=== PATIENT | male | born 1950 | race Caucasian/White ===

== ENCOUNTER → 2017-03-20 | Outpatient (CLI) | payer MEDICARE | END | disposition home or self-care (01) | LOC: CFH 09:36 | PROVIDERS: ATTEND Internal Medicine Cardiovascular Disease | DX: I35.0 Nonrheumatic aortic (valve) stenosis (principal); I10 Essential (primary) hypertension; Z72.0 Tobacco use | CPT/HCPCS: 93306 ==

== ENCOUNTER → 2020-02-12 | Outpatient (CLI) | payer MEDICARE ==
[~2020-02-12] MED LIST: FAMO20TA7 PO; LISINOPRIL; METF500T17 PO; METH40TA3 PO; ONDA8TAB16 SL; ROSU20TA2 PO; TAMS-11 PO
== END | disposition home or self-care (01) ==
LOC: STAR 10:03
PROVIDERS: ATTEND Internal Medicine
DX: Z01.818 Encounter for other preprocedural examination (principal); I45.10 Unspecified right bundle-branch block; Z20.828 Contact with and (suspected) exposure to other viral communicable diseases
CPT/HCPCS: 87635; 93005

== ENCOUNTER 2020-02-18 10:24 | Day surgery (SDC) | payer MEDICARE ==
[~2020-02-18] VITALS: Ht 167.6 cm; Wt 56.6 kg
[2020-02-18 10:50] VITALS: BP 114/77
[2020-02-18] MEDS ORDERED: LACTATED RINGERS 1,000 ML IV SCH (11:00)
[2020-02-18] MEDS ORDERED: CHLORHEXIDINE 15 ML UDC MM ONE (11:00)
[2020-02-18 11:36] LABS: ALANINE AMINOTRANSFERASE 42 U/L (12-78); ALBUMIN 2.7 g/dL (3.4-5.0); ANION GAP 4 mmol/L (5-15); CALCIUM 9.1 mg/dL (8.5-10.1); CHLORIDE 101 mmol/L (98-107)
[2020-02-18 11:38] LABS: ALKALINE PHOSPHATASE 111 U/L (45-117); BILIRUBIN,TOTAL 0.7 mg/dL (0.2-1.0); CREATININE 0.79 mg/dL (0.7-1.3); TOTAL PROTEIN 7.9 g/dL (6.4-8.2)
[2020-02-18 11:39] LABS: BASOPHILS % (AUTO) 1 % (0-1); EOSINOPHILS % (AUTO) 0 % (1-7); LYMPHOCYTES % (AUTO) 8 % (22-44); MEAN CORPUSCULAR HEMOGLOBIN 26.9 pg (27.5-34.5); MEAN CORPUSCULAR HGB CONC 32.3 g/dL (33.2-36.2); MEAN PLATELET VOLUME 8.4 fL (7.4-10.4); MONOCYTES % (AUTO) 8 % (2-9); NEUTROPHILS % (AUTO) 83 % (42-75); PLATELET COUNT 209 x10^3/uL (130-400); RED BLOOD COUNT 3.52 x10^6/uL (4.38-5.82)
[2020-02-18] MEDS ORDERED: FENTANYL PF 100 MCG/2ML ONE (11:39)
[2020-02-18] MEDS ORDERED: MIDAZOLAM 1 MG/ML, 2ML ONE (11:40)
[2020-02-18 11:43] LABS: MD NO
[2020-02-18] MEDS ORDERED: MEPERIDINE/PF 25MG/0.5ML IVPush PRN (12:00)
[2020-02-18] MEDS ORDERED: PROMETHAZINE 25 MG/ML, 1ML IVPush PRN (12:00)
[2020-02-18] MEDS ORDERED: HYDROmorphone 1 MG/ML, 1ML INJ IVPush PRN (12:00)
[2020-02-18] MEDS ORDERED: HYDROcodone/APAP 7.5-325MG/15ML UDC PO PRN (12:00)
[2020-02-18] MEDS ORDERED: FENTANYL PF 100 MCG/2ML IV PRN (12:00)
[2020-02-18] MEDS ORDERED: OXYcodone 5 MG/5 ML ORAL.SOL UDC PO PRN (12:00)
[2020-02-18] MEDS ORDERED: PHENYLEPHRINE 10 MG/ML ONE (13:04)
[2020-02-18] MEDS ORDERED: PROPOFOL 10 MG/ML, 20ML ONE (13:04)
[2020-02-18] MEDS ORDERED: ROCURONIUM 10 MG/ML,10ML ONE (13:04)
[2020-02-18] MEDS ORDERED: CEFAZOLIN 1,000 MG ONE (13:04)
[2020-02-18] MEDS ORDERED: VASOPRESSIN 20 UNIT/ML, 1ML ONE (13:04)
[2020-02-18] MEDS ORDERED: SUCCINYLCHOLINE 20 MG/ML, 10ML ONE (13:04)
[2020-02-18] MEDS ORDERED: OMNIPAQUE 350 MG/ML, 50 ML BOTTLE ONE (13:44)
[2020-02-18] MEDS ORDERED: FAMO40TA4 PO (20:53)
[2020-02-18] MEDS ORDERED: METF10007 PO (20:53)
[2020-02-18] MEDS ORDERED: DICY10CA3 PO (20:53)
[2020-02-18] MEDS ORDERED: TRAZ-175 PO (20:53)
[2020-02-24] MEDS ORDERED: TAMS-11 PO (12:39)
== END 2020-02-18 15:30 | disposition home or self-care (01) ==
LOC: OUT 10:24
PROVIDERS: ATTEND Internal Medicine
DX: Z46.59 Encounter for fitting and adjustment of other gastrointestinal appliance and device (principal); K80.50 Calculus of bile duct without cholangitis or cholecystitis without obstruction; K83.2 Perforation of bile duct; E11.9 Type 2 diabetes mellitus without complications; I25.2 Old myocardial infarction; Z79.4 Long term (current) use of insulin; Z79.891 Long term (current) use of opiate analgesic; Z79.899 Other long term (current) drug therapy; Z88.8 Allergy status to other drugs, medicaments and biological substances
CPT/HCPCS: 43264; 43276; 74328; 80053; 82962; 85025; C1769; C1894; C2625; J0330; J0690; J2250; J2370; J2704; J3010; J7120; Q9967

== ENCOUNTER → 2020-03-26 | Outpatient (CLI) | payer MEDICARE ==
[~2020-03-26] MED LIST changes: +DICY10CA3 PO; +ERTA1VIA IV; +FAMO40TA4 PO; +LACT20SO13 NG; +METF10007 PO; +OMNIPAQUE 350 MG/ML, 100ML BOTTLE ONE; +TRAZ-175 PO
== END | disposition home or self-care (01) ==
LOC: RAD 12:14
PROVIDERS: ATTEND Internal Medicine Infectious Disease
DX: K75.0 Abscess of liver (principal)
CPT/HCPCS: 74177; Q9967

== ENCOUNTER → 2020-04-08 | Outpatient (CLI) | payer MEDICARE ==
[~2020-04-08] MED LIST changes: -OMNIPAQUE 350 MG/ML, 100ML BOTTLE ONE
== END | disposition home or self-care (01) ==
LOC: STAR 11:33
PROVIDERS: ATTEND Internal Medicine
DX: Z01.818 Encounter for other preprocedural examination (principal); I45.2 Bifascicular block; R94.31 Abnormal electrocardiogram [ECG] [EKG]; Z20.822 Contact with and (suspected) exposure to COVID-19
CPT/HCPCS: 87635; 93005

== ENCOUNTER 2020-04-14 09:48 | Day surgery (SDC) | payer MEDICARE ==
[~2020-04-14] VITALS: Ht 167.6 cm; Wt 61.6 kg
[~2020-04-14 09:48] MED LIST changes: +BUPIVACAINE/PF 0.5% ONE; +DEXAMETHASONE 4 MG/ML, 5ML ONE; +EPINEPHRINE 1 MG/ML, 1ML ONE; +FENTANYL PF 100 MCG/2ML ONE; +LIDOCAINE-MPF 2% ,5ML ONE; +ONDANSETRON 2MG/ML, 2ML ONE; +OXYcodone 5 MG/5 ML ORAL.SOL UDC ONE; +PROPOFOL 10 MG/ML, 20ML ONE; +ROCURONIUM 10MG/ML,5ML ONE; +SUCCINYLCHOLINE 20 MG/ML, 10ML ONE; +SUGAMMADEX 200 MG/2 ML IVPush ONE; +TALC 4 GM VIAL ONE
[2020-04-14] MEDS ORDERED: LACTATED RINGERS 1,000 ML IV SCH (10:30)
[2020-04-14] MEDS ORDERED: CHLORHEXIDINE 15 ML UDC MM ONE (10:30)
[2020-04-14] MEDS ORDERED: IRON PO (10:31)
[2020-04-14] MEDS ORDERED: VITAMIN C PO (10:31)
[2020-04-14] MEDS ORDERED: FURO20TA3 PO (10:31)
[2020-04-14] MEDS ORDERED: [UNRECOGNIZED DRUG - REMARK] IV (10:33)
[2020-04-14 10:36] VITALS: BP 126/79
[2020-04-14] MEDS ORDERED: CHLORHEXIDINE 15 ML UDC ONE (10:43)
[2020-04-14] MEDS ORDERED: PROPOFOL 10 MG/ML, 20ML ONE (12:59)
[2020-04-14] MEDS ORDERED: GLYCOPYRROLATE 0.2MG/1ML, 5ML ONE (12:59)
[2020-04-14] MEDS ORDERED: MIDAZOLAM 1 MG/ML, 2ML ONE (12:59)
[2020-04-14] MEDS ORDERED: DEXAMETHASONE 4 MG/ML, 5ML ONE (12:59)
[2020-04-14] MEDS ORDERED: ROCURONIUM 10MG/ML,5ML ONE (12:59)
[2020-04-14] MEDS ORDERED: OMNIPAQUE 350 MG/ML, 50 ML BOTTLE ONE (14:18)
== END 2020-04-14 17:05 | disposition home or self-care (01) ==
LOC: OUT 09:48
PROVIDERS: ATTEND Internal Medicine
DX: Z46.59 Encounter for fitting and adjustment of other gastrointestinal appliance and device (principal); K80.50 Calculus of bile duct without cholangitis or cholecystitis without obstruction; D64.9 Anemia, unspecified; J44.9 Chronic obstructive pulmonary disease, unspecified; E11.9 Type 2 diabetes mellitus without complications; N40.0 Benign prostatic hyperplasia without lower urinary tract symptoms; I25.10 Atherosclerotic heart disease of native coronary artery without angina pectoris; Z79.899 Other long term (current) drug therapy; Z90.49 Acquired absence of other specified parts of digestive tract; Z99.81 Dependence on supplemental oxygen
CPT/HCPCS: 43264; 43275; 74328; 82962; C1769; J1100; J2250; J2704; J7120; Q9967; J0171; J2405; J3010; J0330

== ENCOUNTER 2020-05-18 16:09 | Inpatient (IN) | payer MEDICARE ==
[~2020-05-18] VITALS: Ht 167.6 cm; Wt 61.2 kg
[~2020-05-18 16:09] MED LIST changes: -BUPIVACAINE/PF 0.5% ONE; +CARV3.1212 PO; -DEXAMETHASONE 4 MG/ML, 5ML ONE; -EPINEPHRINE 1 MG/ML, 1ML ONE; -FENTANYL PF 100 MCG/2ML ONE; +FERR-51 PO; +FURO-92 PO; +FURO20TA3 PO; +IRON PO; -LIDOCAINE-MPF 2% ,5ML ONE; +METH10TA2 PO; -ONDANSETRON 2MG/ML, 2ML ONE; -OXYcodone 5 MG/5 ML ORAL.SOL UDC ONE; -PROPOFOL 10 MG/ML, 20ML ONE; -ROCURONIUM 10MG/ML,5ML ONE; +SPIR25TA PO; -SUCCINYLCHOLINE 20 MG/ML, 10ML ONE; -SUGAMMADEX 200 MG/2 ML IVPush ONE; -TALC 4 GM VIAL ONE; +VITAMIN C PO; +[UNRECOGNIZED DRUG - REMARK] IV
[2020-05-18] MEDS ORDERED: SODIUM CHLORIDE FLUSH 10ML SYR IVF ONE (18:00)
--- NOTE | 2020-05-18 18:23 | NUR ---
pt in bed with no signs or symptoms of acute distress noted respirations even and unlabored, satting well on nc at 3l/min. pt states he wants a picc line/us start iv and that it wont work if rn attempts peripherial amador. lab in to draw but deffers to iv start draw. pt ok'd by for food tray. pt in bed with call light and urinal within reach
[2020-05-18 18:30] LABS: BASOPHILS % (AUTO) 1 % (0-1); EOSINOPHILS % (AUTO) 1 % (1-7); LYMPHOCYTES % (AUTO) 16 % (22-44); MEAN CORPUSCULAR HEMOGLOBIN 25.5 pg (27.5-34.5); MEAN CORPUSCULAR HGB CONC 31.3 g/dL (33.2-36.2); MEAN PLATELET VOLUME 8.3 fL (7.4-10.4); MONOCYTES % (AUTO) 12 % (2-9); NEUTROPHILS % (AUTO) 71 % (42-75); PLATELET COUNT 133 x10^3/uL (130-400); RED BLOOD COUNT 3.63 x10^6/uL (4.38-5.82); RED CELL DISTRIBUTION WIDTH 21.7 % (9.4-14.8)
[2020-05-18 18:32] LABS: MD NO
[2020-05-18 18:37] LABS: ALANINE AMINOTRANSFERASE 64 U/L (12-78); ALBUMIN 3.1 g/dL (3.4-5.0); ANION GAP 2 mmol/L (5-15); CALCIUM 9.2 mg/dL (8.5-10.1); CHLORIDE 105 mmol/L (98-107); CREATININE 0.88 mg/dL (0.7-1.3)
[2020-05-18 18:41] LABS: ALKALINE PHOSPHATASE 110 U/L (45-117); BILIRUBIN,TOTAL 0.5 mg/dL (0.2-1.0); TOTAL PROTEIN 8.2 g/dL (6.4-8.2); TROPONIN I 0.055 ng/mL (0.000-0.045)
[2020-05-18] MEDS ORDERED: hydrALAzine 20 MG/ML, 1ML IVPush PRN (19:30)
[2020-05-18] MEDS ORDERED: PROMETHAZINE 25 MG/ML, 1ML IM PRN (19:30)
[2020-05-18] MEDS ORDERED: POLYETHYLENE GLYCOL 17 GM PACKET PO PRN (19:30)
[2020-05-18] MEDS ORDERED: ONDANSETRON 2MG/ML, 2ML IVPush PRN (19:30)
[2020-05-18] MEDS ORDERED: DOCUSATE 100 MG CAPSULE PO PRN (19:30)
[2020-05-18] MEDS ORDERED: ACETAMINOPHEN 325 MG TABLET PO PRN (19:30)
[2020-05-18] MEDS ORDERED: ONDANSETRON ODT 4 MG PO PRN (19:30)
[2020-05-18] MEDS ORDERED: OXYcodone IR 5MG TABLET PO PRN (19:30)
[2020-05-18] MEDS ORDERED: BISACODYL 10 MG SUPP PR PRN (19:30)
[2020-05-18 20:09] VITALS: BP 99/62
[2020-05-18] MEDS ORDERED: POTA10TA31 PO (22:08)
[2020-05-18] MEDS ORDERED: FURO40TA6 PO (22:08)
[2020-05-18] MEDS: FUROSEMIDE 40 MG/4 ML IV SCH (22:22)
[2020-05-18] MEDS: HEPARIN 5,000 UNITS/ML, 1ML SQ SCH (22:22)
[2020-05-18] MEDS: INSULIN LISPRO 100 UNITS/ML, PEN SQ-INSULIN SCH (23:02)
[2020-05-19 02:24] VITALS: BP 99/64
[2020-05-19] MEDS: CALCIUM CARBONATE 500 MG TAB.CHEW PO PRN ×2 (02:29→09:35)
[2020-05-19 05:39] LABS: BASOPHILS % (AUTO) 1 % (0-1); EOSINOPHILS % (AUTO) 2 % (1-7); LYMPHOCYTES % (AUTO) 18 % (22-44); MEAN CORPUSCULAR HEMOGLOBIN 25.8 pg (27.5-34.5); MEAN CORPUSCULAR HGB CONC 31.6 g/dL (33.2-36.2); MEAN PLATELET VOLUME 8.3 fL (7.4-10.4); MONOCYTES % (AUTO) 12 % (2-9); NEUTROPHILS % (AUTO) 68 % (42-75); PLATELET COUNT 137 x10^3/uL (130-400); RED BLOOD COUNT 3.52 x10^6/uL (4.38-5.82); RED CELL DISTRIBUTION WIDTH 20.6 % (9.4-14.8)
[2020-05-19 05:42] LABS: MD NO
[2020-05-19 05:53] LABS: ALANINE AMINOTRANSFERASE 63 U/L (12-78); ANION GAP 5 mmol/L (5-15); CALCIUM 9.4 mg/dL (8.5-10.1); CHLORIDE 103 mmol/L (98-107)
[2020-05-19 05:56] LABS: ALKALINE PHOSPHATASE 108 U/L (45-117); BILIRUBIN,TOTAL 0.6 mg/dL (0.2-1.0); TOTAL PROTEIN 8.4 g/dL (6.4-8.2)
[2020-05-19] MEDS: HEPARIN 5,000 UNITS/ML, 1ML SQ SCH ×2 (06:18→16:22)
[2020-05-19 06:51] VITALS: BP 119/77
[2020-05-19] MEDS: FUROSEMIDE 40 MG/4 ML IV SCH ×2 (07:52→16:22)
[2020-05-19] MEDS: TAMSULOSIN 0.4 MG CAP.ER.24H PO SCH (07:53)
[2020-05-19] MEDS: INSULIN LISPRO 100 UNITS/ML, PEN SQ-INSULIN SCH ×4 (08:01→19:55)
[2020-05-19] MEDS: FERROUS SULFATE 325 MG TABLET PO SCH (08:02)
[2020-05-19] MEDS ORDERED: METHADONE 10 MG TABLET PO SCH (09:00)
[2020-05-19 13:17] VITALS: BP 107/74
[2020-05-19] MEDS ORDERED: LIDOCAINE 1%, 10ML ONE (13:34)
[2020-05-19 20:19] VITALS: BP 132/85
[2020-05-20] MEDS: HEPARIN 5,000 UNITS/ML, 1ML SQ SCH ×3 (00:15→16:13)
[2020-05-20 01:05] VITALS: BP 112/70
[2020-05-20] MEDS: CARVEDILOL 3.125 MG TABLET PO SCH (05:40)
[2020-05-20 06:04] LABS: BASOPHILS % (AUTO) 1 % (0-1); EOSINOPHILS % (AUTO) 3 % (1-7); LYMPHOCYTES % (AUTO) 22 % (22-44); MEAN CORPUSCULAR HEMOGLOBIN 25.5 pg (27.5-34.5); MEAN CORPUSCULAR HGB CONC 31.7 g/dL (33.2-36.2); MEAN PLATELET VOLUME 8.3 fL (7.4-10.4); MONOCYTES % (AUTO) 14 % (2-9); NEUTROPHILS % (AUTO) 60 % (42-75); PLATELET COUNT 116 x10^3/uL (130-400); RED BLOOD COUNT 3.41 x10^6/uL (4.38-5.82); RED CELL DISTRIBUTION WIDTH 19.8 % (9.4-14.8)
[2020-05-20 06:06] LABS: CALCIUM 9.3 mg/dL (8.5-10.1); CHLORIDE 103 mmol/L (98-107)
[2020-05-20 06:12] LABS: ALANINE AMINOTRANSFERASE 55 U/L (12-78); ALBUMIN 2.8 g/dL (3.4-5.0); ALKALINE PHOSPHATASE 97 U/L (45-117); ANION GAP 5 mmol/L (5-15); BILIRUBIN,TOTAL 0.6 mg/dL (0.2-1.0); CREATININE 0.85 mg/dL (0.7-1.3); TOTAL PROTEIN 7.7 g/dL (6.4-8.2)
[2020-05-20 06:16] LABS: MD NO
[2020-05-20] MEDS: INSULIN LISPRO 100 UNITS/ML, PEN SQ-INSULIN SCH ×4 (07:00→20:21)
[2020-05-20 07:04] VITALS: BP 97/64
[2020-05-20] MEDS: FUROSEMIDE 40 MG/4 ML IV SCH ×2 (07:59→16:50)
[2020-05-20] MEDS: TAMSULOSIN 0.4 MG CAP.ER.24H PO SCH (09:20)
[2020-05-20] MEDS: METHADONE 10 MG TABLET PO SCH ×2 (09:20→20:09)
[2020-05-20] MEDS: FERROUS SULFATE 325 MG TABLET PO SCH (09:21)
[2020-05-20] MEDS: SPIRONOLACTONE 25 MG TABLET PO SCH (09:21)
[2020-05-20 14:57] VITALS: BP 99/61
[2020-05-20] MEDS: CALCIUM CARBONATE 500 MG TAB.CHEW PO PRN (15:43)
[2020-05-20 18:45] LABS: MEAN CORPUSCULAR HGB CONC 31.1 g/dL (33.2-36.2)
[2020-05-20 18:47] LABS: BASOPHILS % (AUTO) 0 % (0-1); EOSINOPHILS % (AUTO) 2 % (1-7); LYMPHOCYTES % (AUTO) 18 % (22-44); MEAN CORPUSCULAR HEMOGLOBIN 25.4 pg (27.5-34.5); MEAN PLATELET VOLUME 8.8 fL (7.4-10.4); MONOCYTES % (AUTO) 13 % (2-9); NEUTROPHILS % (AUTO) 67 % (42-75); PLATELET COUNT 130 x10^3/uL (130-400); RED BLOOD COUNT 3.79 x10^6/uL (4.38-5.82); RED CELL DISTRIBUTION WIDTH 20.3 % (9.4-14.8)
[2020-05-20 18:57] LABS: MD NO
[2020-05-20 18:59] LABS: ALANINE AMINOTRANSFERASE 63 U/L (12-78); ALBUMIN 3.1 g/dL (3.4-5.0); ANION GAP 2 mmol/L (5-15); CALCIUM 9.2 mg/dL (8.5-10.1); CHLORIDE 101 mmol/L (98-107); CREATININE 1.06 mg/dL (0.7-1.3)
[2020-05-20 19:01] LABS: ALKALINE PHOSPHATASE 114 U/L (45-117); BILIRUBIN,TOTAL 0.5 mg/dL (0.2-1.0); TOTAL PROTEIN 8.4 g/dL (6.4-8.2)
[2020-05-20] MEDS ORDERED: MAALOX/HYOSCYAMINE/LIDOCAINE 45 ML BTL PO PRN (20:00)
[2020-05-20 20:14] VITALS: BP 108/68
[2020-05-20 20:19] VITALS: BP 100/65
[2020-05-21] MEDS: HEPARIN 5,000 UNITS/ML, 1ML SQ SCH ×3 (00:12→16:37)
[2020-05-21] MEDS: CALCIUM CARBONATE 500 MG TAB.CHEW PO PRN ×3 (00:12→16:37)
[2020-05-21 01:12] VITALS: BP 113/69
[2020-05-21] MEDS: CARVEDILOL 3.125 MG TABLET PO SCH (05:25)
[2020-05-21] MEDS: FUROSEMIDE 40 MG/4 ML IV SCH ×2 (07:55→16:37)
[2020-05-21] MEDS: OMEPRAZOLE 20 MG CAPSULE.DR PO SCH (07:55)
[2020-05-21] MEDS: INSULIN LISPRO 100 UNITS/ML, PEN SQ-INSULIN SCH ×4 (07:55→20:31)
[2020-05-21 08:21] VITALS: BP 99/67
[2020-05-21] MEDS: FERROUS SULFATE 325 MG TABLET PO SCH (09:11)
[2020-05-21] MEDS: SPIRONOLACTONE 25 MG TABLET PO SCH (09:11)
[2020-05-21] MEDS: METHADONE 10 MG TABLET PO SCH ×3 (09:11→20:47)
[2020-05-21] MEDS: TAMSULOSIN 0.4 MG CAP.ER.24H PO SCH (09:11)
[2020-05-21 13:59] VITALS: BP 105/72
[2020-05-21 15:23] VITALS: BP 112/69
[2020-05-21 19:43] VITALS: BP 108/74
[2020-05-22] MEDS: HEPARIN 5,000 UNITS/ML, 1ML SQ SCH ×2 (00:21→09:18)
[2020-05-22 00:58] VITALS: BP 112/58
[2020-05-22] MEDS: CARVEDILOL 3.125 MG TABLET PO SCH (05:39)
[2020-05-22] MEDS: OMEPRAZOLE 20 MG CAPSULE.DR PO SCH (05:39)
[2020-05-22 07:45] LABS: BASOPHILS % (AUTO) 1 % (0-1); EOSINOPHILS % (AUTO) 1 % (1-7); LYMPHOCYTES % (AUTO) 11 % (22-44); MEAN CORPUSCULAR HEMOGLOBIN 25.4 pg (27.5-34.5); MEAN CORPUSCULAR HGB CONC 31.1 g/dL (33.2-36.2); MEAN PLATELET VOLUME 8.8 fL (7.4-10.4); MONOCYTES % (AUTO) 13 % (2-9); NEUTROPHILS % (AUTO) 74 % (42-75); PLATELET COUNT 126 x10^3/uL (130-400); RED BLOOD COUNT 3.79 x10^6/uL (4.38-5.82); RED CELL DISTRIBUTION WIDTH 20.5 % (9.4-14.8)
[2020-05-22 07:54] LABS: MD NO
[2020-05-22 07:59] LABS: ALBUMIN 3.1 g/dL (3.4-5.0); CALCIUM 9.4 mg/dL (8.5-10.1)
[2020-05-22 08:03] LABS: ALANINE AMINOTRANSFERASE 61 U/L (12-78); ALKALINE PHOSPHATASE 105 U/L (45-117); BILIRUBIN,TOTAL 0.7 mg/dL (0.2-1.0); CREATININE 1.16 mg/dL (0.7-1.3); TOTAL PROTEIN 8.6 g/dL (6.4-8.2)
[2020-05-22 08:14] LABS: ANION GAP 5 mmol/L (5-15); CHLORIDE 99 mmol/L (98-107)
[2020-05-22] MEDS: INSULIN LISPRO 100 UNITS/ML, PEN SQ-INSULIN SCH ×2 (08:48→11:00)
[2020-05-22 09:00] VITALS: BP 102/76
[2020-05-22] MEDS ORDERED: METHADONE 5 MG TABLET ONE (09:06)
[2020-05-22] MEDS: TAMSULOSIN 0.4 MG CAP.ER.24H PO SCH (09:16)
[2020-05-22] MEDS: SPIRONOLACTONE 25 MG TABLET PO SCH (09:16)
[2020-05-22] MEDS: METHADONE 10 MG TABLET PO SCH (09:16)
[2020-05-22] MEDS: FUROSEMIDE 40 MG/4 ML IV SCH ×2 (09:17→09:29)
[2020-05-22] MEDS: FERROUS SULFATE 325 MG TABLET PO SCH (09:20)
[2020-05-22] MEDS ORDERED: FUROSEMIDE 40 MG TABLET PO ONE (09:30)
[2020-05-22] MEDS ORDERED: FURO40TA6 PO (09:55)
[2020-05-22] MEDS ORDERED: OMEP-110 PO (09:55)
[2020-05-22] MEDS ORDERED: CARV3.1212 PO (09:55)
[2020-05-22] MEDS ORDERED: SPIR25TA PO (09:55)
[2020-05-22] MEDS ORDERED: POTA10TA31 PO (09:55)
[2020-05-22] MEDS ORDERED: ATOR20TA PO (09:57)
[2020-05-22] MEDS ORDERED: FUROSEMIDE 40 MG TABLET PO SCH (17:00)
== END 2020-05-22 13:20 | disposition home or self-care (01) | DRG 291 ==
LOC: ED 17:46 → EDIP 18:38 → 5SO 19:52 → DCLOUNGE 05-22 13:03
PROVIDERS: ADMIT Internal Medicine; ATTEND Hospitalist
PROC: 0W9B3ZZ Drainage of Left Pleural Cavity, Percutaneous Approach (ICD-10-PCS; principal; 2020-05-19)
DX: I11.0 Hypertensive heart disease with heart failure (principal); E43 Unspecified severe protein-calorie malnutrition; J96.01 Acute respiratory failure with hypoxia; F11.20 Opioid dependence, uncomplicated; I42.9 Cardiomyopathy, unspecified; B18.2 Chronic viral hepatitis C; D63.8 Anemia in other chronic diseases classified elsewhere; I95.9 Hypotension, unspecified; R53.81 Other malaise; E11.9 Type 2 diabetes mellitus without complications; G89.29 Other chronic pain; I07.1 Rheumatic tricuspid insufficiency; I25.10 Atherosclerotic heart disease of native coronary artery without angina pectoris; I35.0 Nonrheumatic aortic (valve) stenosis; N40.0 Benign prostatic hyperplasia without lower urinary tract symptoms; Z87.891 Personal history of nicotine dependence; Z90.49 Acquired absence of other specified parts of digestive tract; Z68.21 Body mass index [BMI] 21.0-21.9, adult; I50.23 Acute on chronic systolic (congestive) heart failure
CPT/HCPCS: 32555; 36415; 71045; 76700; 80053; 82962; 83615; 83735; 83880; 83986; 84100; 84157; 84484; 85025; 87070; 87205; 89051; 93005; 96374; 99291; G0378; J1644; J1940; J1815

== ENCOUNTER 2020-06-08 11:56 | Emergency (ER) | payer MEDICARE ==
[~2020-06-08] VITALS: Ht 167.6 cm; Wt 61.0 kg
[~2020-06-08 11:56] MED LIST changes: +ATOR20TA PO; +FURO40TA6 PO; +OMEP-110 PO; +POTA10TA31 PO
--- NOTE | 2020-06-08 12:30 | NUR ---
task rn: right arm piv placed via ultrasound
[2020-06-08] MEDS ORDERED: FUROSEMIDE 40 MG/4 ML IV ONE (13:30)
[2020-06-08 13:50] LABS: BASOPHILS % (AUTO) 1 % (0-1); EOSINOPHILS % (AUTO) 1 % (1-7); LYMPHOCYTES % (AUTO) 11 % (22-44); MEAN CORPUSCULAR HEMOGLOBIN 24.8 pg (27.5-34.5); MEAN CORPUSCULAR HGB CONC 30.2 g/dL (33.2-36.2); MEAN PLATELET VOLUME 8.9 fL (7.4-10.4); MONOCYTES % (AUTO) 13 % (2-9); NEUTROPHILS % (AUTO) 75 % (42-75); PLATELET COUNT 136 x10^3/uL (130-400); RED BLOOD COUNT 3.74 x10^6/uL (4.38-5.82); RED CELL DISTRIBUTION WIDTH 20.1 % (9.4-14.8)
[2020-06-08 13:53] LABS: MD NO
[2020-06-08 13:55] LABS: INTERNATIONAL NORMALIZED RATIO 1.18 (0.93-1.1); PROTHROMBIN TIME 12.6 Seconds (9.6-11.5)
[2020-06-08 13:56] LABS: ALANINE AMINOTRANSFERASE 51 U/L (12-78); ALBUMIN 3.1 g/dL (3.4-5.0); ANION GAP 6 mmol/L (5-15); CALCIUM 8.9 mg/dL (8.5-10.1); CHLORIDE 107 mmol/L (98-107); CREATININE 0.92 mg/dL (0.7-1.3)
[2020-06-08 14:01] LABS: ALKALINE PHOSPHATASE 94 U/L (45-117); BILIRUBIN,TOTAL 0.7 mg/dL (0.2-1.0); TOTAL PROTEIN 8.6 g/dL (6.4-8.2); TROPONIN I 0.055 ng/mL (0.000-0.045)
[2020-06-08] MEDS ORDERED: FUROSEMIDE 40 MG/4 ML ONE (14:07)
[2020-06-08 14:19] VITALS: BP 112/51
[2020-06-08] MEDS ORDERED: KETOROLAC 30 MG/1 ML ONE (14:47)
[2020-06-08] MEDS ORDERED: KETOROLAC 30 MG/1 ML IVPush ONE (15:00)
--- NOTE | 2020-06-08 15:03 | NUR ---
PT DC VIA WHEELCHAIR WITH O2 TANK. SON TO BRING HOME O2 TANK
== END 2020-06-08 15:05 | disposition home or self-care (01) ==
LOC: ED 14:55
DX: I50.22 Chronic systolic (congestive) heart failure (principal); Z76.0 Encounter for issue of repeat prescription; I45.10 Unspecified right bundle-branch block; R07.89 Other chest pain
CPT/HCPCS: 36415; 71045; 80053; 83880; 84484; 85025; 85610; 93005; 96374; 96375; 99285; J1885; J1940

== ENCOUNTER 2020-07-11 21:11 | Inpatient (IN) | payer MEDICARE ==
[~2020-07-11] VITALS: Ht 167.6 cm; Wt 67.0 kg
[~2020-07-11 21:11] MED LIST changes: +FERR-36 PO; +INSU100I11 SQ-INSULIN; +INSU100I13 SQ-INSULIN
--- NOTE | 2020-07-11 21:52 | NUR ---
THIS IS A 69 YO M W/ C/O TESTICLE SWELLING AND PAIN X3 DAYS. SEVERE EDEMA EXTENDS DOWN BOTH LEGS. PT REPORTS WEARS 2-4L NC BASELINE. PT RESTING ON [place] W/ CALL LIGHT IN REACH AND SIDE RAILS UPX2. RESP EVEN AND UNLABORED, SIOMARAN.
--- NOTE | 2020-07-11 22:40 | NUR ---
UNABLE TO START PIV X2. PT TO US.
[2020-07-11 22:48] LABS: MICROSCOPIC AUTO
--- NOTE | 2020-07-11 23:24 | NUR ---
LAB AT BEDSIDE.
[2020-07-11 23:30] LABS: BASOPHILS % (AUTO) 1 % (0-1); EOSINOPHILS % (AUTO) 1 % (1-7); LYMPHOCYTES % (AUTO) 15 % (22-44); MEAN CORPUSCULAR HEMOGLOBIN 24.9 pg (27.5-34.5); MEAN CORPUSCULAR HGB CONC 30.9 g/dL (33.2-36.2); MEAN PLATELET VOLUME 9.1 fL (7.4-10.4); MONOCYTES % (AUTO) 13 % (2-9); NEUTROPHILS % (AUTO) 71 % (42-75); PLATELET COUNT 100 x10^3/uL (130-400); RED BLOOD COUNT 3.86 x10^6/uL (4.38-5.82); RED CELL DISTRIBUTION WIDTH 20.7 % (9.4-14.8)
[2020-07-11 23:34] LABS: MD NO
[2020-07-11 23:42] LABS: ALBUMIN 2.8 g/dL (3.4-5.0); ANION GAP 5 mmol/L (5-15); CALCIUM 8.7 mg/dL (8.5-10.1); CHLORIDE 102 mmol/L (98-107)
[2020-07-11 23:47] LABS: ALANINE AMINOTRANSFERASE 64 U/L (12-78); ALKALINE PHOSPHATASE 97 U/L (45-117); BILIRUBIN,TOTAL 0.7 mg/dL (0.2-1.0); TOTAL PROTEIN 8.2 g/dL (6.4-8.2); TROPONIN I 0.032 ng/mL (0.000-0.045)
[2020-07-12] VITALS (8 sets, daily range): BP systolic 92–125; BP diastolic 49–77
[2020-07-12] MEDS ORDERED: FUROSEMIDE 40 MG/4 ML IV ONE
[2020-07-12] MEDS ORDERED: METF10007 PO (00:19)
[2020-07-12] MEDS ORDERED: LISI-606 PO (00:19)
[2020-07-12] MEDS ORDERED: FUROSEMIDE 40 MG/4 ML ONE (00:36)
--- NOTE | 2020-07-12 01:12 | NUR ---
BEDSIDE REPORT FROM JOHN CHAVEZ. PT CARE TRANSFERRED AT THIS TIME. PT TO BE ADMITTED. Patient is resting comfortably in bed. Bed in lowest, rails engaged, call light on lap. MADDIE.
[2020-07-12] MEDS ORDERED: INSULIN REG SC (01:19)
[2020-07-12] MEDS ORDERED: INSULIN LANTUS SC (01:19)
--- NOTE | 2020-07-12 01:38 | NUR ---
INVENTORY/BELONINGS SHEET COMPLETED AND SIGNED BY PT. 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
--- NOTE | 2020-07-12 01:54 | NUR ---
REPORT CALLED TO JIMENA CHAVEZ. PT BEING TRANSFERRED TO FLOOR AT THIS TIME
[2020-07-12] MEDS ORDERED: OXYcodone IR 5MG TABLET PO PRN (03:00)
[2020-07-12] MEDS ORDERED: POLYETHYLENE GLYCOL 17 GM PACKET PO PRN (03:00)
[2020-07-12] MEDS ORDERED: MELATONIN 5 MG TABLET PO PRN (03:00)
[2020-07-12] MEDS ORDERED: DOCUSATE 100 MG CAPSULE PO PRN (03:00)
[2020-07-12] MEDS ORDERED: TEMAZEPAM 15 MG CAPSULE PO PRN (03:00)
[2020-07-12] MEDS ORDERED: ONDANSETRON 2MG/ML, 2ML IVPush PRN (03:00)
[2020-07-12] MEDS ORDERED: hydrALAzine 20 MG/ML, 1ML IVPush PRN (03:00)
[2020-07-12] MEDS ORDERED: BISACODYL 10 MG SUPP PR PRN (03:00)
[2020-07-12] MEDS ORDERED: LORazepam 2 MG/ML, 1ML IVPush PRN (03:00)
[2020-07-12] MEDS ORDERED: ACETAMINOPHEN 325 MG TABLET PO PRN (03:00)
[2020-07-12] MEDS: FERROUS SULFATE 325 MG TABLET PO SCH ×2 (03:57→04:16)
[2020-07-12] MEDS: CARVEDILOL 3.125 MG TABLET PO SCH ×2 (06:05→17:09)
[2020-07-12 06:22] LABS: CHLORIDE 102 mmol/L (98-107)
[2020-07-12 06:27] LABS: BASOPHILS % (AUTO) 1 % (0-1); EOSINOPHILS % (AUTO) 1 % (1-7); LYMPHOCYTES % (AUTO) 16 % (22-44); MEAN CORPUSCULAR HEMOGLOBIN 24.9 pg (27.5-34.5); MEAN CORPUSCULAR HGB CONC 30.5 g/dL (33.2-36.2); MEAN PLATELET VOLUME 9.3 fL (7.4-10.4); MONOCYTES % (AUTO) 12 % (2-9); NEUTROPHILS % (AUTO) 71 % (42-75); PLATELET COUNT 95 x10^3/uL (130-400); RED BLOOD COUNT 3.78 x10^6/uL (4.38-5.82); RED CELL DISTRIBUTION WIDTH 20.8 % (9.4-14.8)
[2020-07-12 06:28] LABS: ALANINE AMINOTRANSFERASE 62 U/L (12-78); ALBUMIN 2.7 g/dL (3.4-5.0); ALKALINE PHOSPHATASE 98 U/L (45-117); ANION GAP 5 mmol/L (5-15); BILIRUBIN,TOTAL 0.8 mg/dL (0.2-1.0); CALCIUM 8.3 mg/dL (8.5-10.1); CREATININE 1.11 mg/dL (0.7-1.3); TOTAL PROTEIN 8.1 g/dL (6.4-8.2)
[2020-07-12] MEDS: INSULIN LISPRO 100 UNITS/ML, PEN SQ-INSULIN SCH ×4 (07:00→21:44)
[2020-07-12 07:48] LABS: MD SCAN
[2020-07-12] MEDS ORDERED: LISINOPRIL 5 MG TABLET PO SCH (09:00)
[2020-07-12] MEDS ORDERED: metFORMIN 500 MG TABLET PO SCH (09:00)
[2020-07-12] MEDS ORDERED: FUROSEMIDE 40 MG TABLET PO SCH (09:00)
[2020-07-12] MEDS: METHADONE 10 MG TABLET PO SCH (09:22)
[2020-07-12] MEDS: FAMOTIDINE 20 MG TABLET PO SCH ×2 (09:22→21:30)
[2020-07-12] MEDS: ENOXAPARIN 40 MG/0.4 ML SQ SCH (09:24)
[2020-07-12] MEDS: TAMSULOSIN 0.4 MG CAP.ER.24H PO SCH (09:56)
[2020-07-12 12:17] LABS: TOTAL PROTEIN 8.5 g/dL (6.4-8.2); TROPONIN I 0.029 ng/mL (0.000-0.045)
[2020-07-12] MEDS ORDERED: LIDOCAINE 1%, 10ML ONE (13:36)
[2020-07-12] MEDS ORDERED: FUROSEMIDE 40 MG/4 ML IV SCH (17:00)
[2020-07-12 19:13] LABS: TROPONIN I 0.035 ng/mL (0.000-0.045)
[2020-07-12] MEDS: ATORVASTATIN 20 MG TABLET PO SCH (21:30)
[2020-07-12] MEDS: metFORMIN 500 MG TABLET PO SCH (21:30)
[2020-07-13] VITALS (10 sets, daily range): BP systolic 86–119; BP diastolic 52–65
[2020-07-13 04:54] LABS: BASOPHILS % (AUTO) 1 % (0-1); EOSINOPHILS % (AUTO) 1 % (1-7); LYMPHOCYTES % (AUTO) 15 % (22-44); MEAN CORPUSCULAR HEMOGLOBIN 24.9 pg (27.5-34.5); MEAN CORPUSCULAR HGB CONC 31.1 g/dL (33.2-36.2); MEAN PLATELET VOLUME 9.5 fL (7.4-10.4); MONOCYTES % (AUTO) 13 % (2-9); NEUTROPHILS % (AUTO) 70 % (42-75); PLATELET COUNT 85 x10^3/uL (130-400); RED BLOOD COUNT 3.42 x10^6/uL (4.38-5.82); RED CELL DISTRIBUTION WIDTH 20.7 % (9.4-14.8)
[2020-07-13 05:01] LABS: MD NO
[2020-07-13 05:03] LABS: CHLORIDE 105 mmol/L (98-107)
[2020-07-13 05:07] LABS: ANION GAP 4 mmol/L (5-15); CALCIUM 8.3 mg/dL (8.5-10.1)
[2020-07-13] MEDS: CARVEDILOL 3.125 MG TABLET PO SCH ×2 (05:32→18:01)
[2020-07-13] MEDS: INSULIN LISPRO 100 UNITS/ML, PEN SQ-INSULIN SCH ×4 (07:00→21:25)
[2020-07-13] MEDS ORDERED: FUROSEMIDE 40 MG/4 ML IV SCH (07:30)
[2020-07-13] MEDS ORDERED: LISINOPRIL 5 MG TABLET PO SCH (09:00)
[2020-07-13] MEDS: ENOXAPARIN 40 MG/0.4 ML SQ SCH ×2 (09:00→09:41)
[2020-07-13] MEDS: METHADONE 10 MG TABLET PO SCH (09:40)
[2020-07-13] MEDS: TAMSULOSIN 0.4 MG CAP.ER.24H PO SCH (09:41)
[2020-07-13] MEDS: metFORMIN 500 MG TABLET PO SCH ×2 (09:41→21:18)
[2020-07-13] MEDS: FAMOTIDINE 20 MG TABLET PO SCH ×2 (09:41→21:18)
[2020-07-13] MEDS ORDERED: ALBUMIN HUMAN 25% 100 ML IV ONE (10:30)
[2020-07-13] MEDS: FUROSEMIDE 20 MG/2 ML IV SCH ×2 (12:31→18:01)
[2020-07-13] MEDS: ATORVASTATIN 20 MG TABLET PO SCH (21:18)
[2020-07-14 01:09] VITALS: BP 98/61
[2020-07-14] MEDS: FERROUS SULFATE 325 MG TABLET PO SCH ×2 (03:08→03:16)
[2020-07-14 06:34] VITALS: BP 94/56
[2020-07-14] MEDS: INSULIN LISPRO 100 UNITS/ML, PEN SQ-INSULIN SCH ×4 (07:00→21:22)
[2020-07-14] MEDS: FUROSEMIDE 20 MG/2 ML IV SCH ×2 (08:25→17:07)
[2020-07-14] MEDS: METHADONE 10 MG TABLET PO SCH (08:25)
[2020-07-14] MEDS: TAMSULOSIN 0.4 MG CAP.ER.24H PO SCH (08:26)
[2020-07-14] MEDS: ENOXAPARIN 40 MG/0.4 ML SQ SCH (08:26)
[2020-07-14] MEDS: CARVEDILOL 3.125 MG TABLET PO SCH ×2 (08:26→18:38)
[2020-07-14] MEDS: metFORMIN 500 MG TABLET PO SCH ×2 (08:26→21:22)
[2020-07-14] MEDS: FAMOTIDINE 20 MG TABLET PO SCH ×2 (08:26→21:21)
[2020-07-14] MEDS: CALCIUM CARBONATE 500 MG TAB.CHEW PO PRN ×2 (10:39→14:29)
[2020-07-14 13:55] VITALS: BP 103/54
[2020-07-14 18:43] VITALS: BP 106/66
[2020-07-14] MEDS: ATORVASTATIN 20 MG TABLET PO SCH ×2 (21:00→21:21)
[2020-07-14] MEDS: ALBUMIN HUMAN 25% 50 ML IV SCH (21:22)
[2020-07-15 01:27] VITALS: BP 101/58
[2020-07-15] MEDS: ALBUMIN HUMAN 25% 50 ML IV SCH ×3 (05:04→17:37)
[2020-07-15] MEDS: CARVEDILOL 3.125 MG TABLET PO SCH ×2 (05:04→17:37)
[2020-07-15 05:09] LABS: ANION GAP 5 mmol/L (5-15); CALCIUM 8.6 mg/dL (8.5-10.1); CHLORIDE 103 mmol/L (98-107); CREATININE 0.98 mg/dL (0.7-1.3)
[2020-07-15 07:05] VITALS: BP 97/62
[2020-07-15] MEDS: INSULIN LISPRO 100 UNITS/ML, PEN SQ-INSULIN SCH ×4 (07:26→21:00)
[2020-07-15] MEDS: FUROSEMIDE 20 MG/2 ML IV SCH ×2 (07:52→16:37)
[2020-07-15] MEDS: TAMSULOSIN 0.4 MG CAP.ER.24H PO SCH (07:58)
[2020-07-15] MEDS: FAMOTIDINE 20 MG TABLET PO SCH ×2 (07:58→21:12)
[2020-07-15] MEDS: metFORMIN 500 MG TABLET PO SCH ×2 (07:58→16:33)
[2020-07-15] MEDS: METHADONE 10 MG TABLET PO SCH (07:58)
[2020-07-15] MEDS: ENOXAPARIN 40 MG/0.4 ML SQ SCH (07:59)
[2020-07-15] MEDS: CALCIUM CARBONATE 500 MG TAB.CHEW PO PRN (11:43)
[2020-07-15 15:39] VITALS: BP 112/70
[2020-07-15] MEDS ORDERED: METOLAZONE 2.5 MG TABLET ONE (16:18)
[2020-07-15 17:34] VITALS: BP 104/62
[2020-07-15 20:54] VITALS: BP 110/71
[2020-07-15] MEDS: ATORVASTATIN 20 MG TABLET PO SCH (21:12)
[2020-07-16] VITALS: BP 94/70
[2020-07-16] MEDS: FERROUS SULFATE 325 MG TABLET PO SCH (02:04)
[2020-07-16] MEDS: ALBUMIN HUMAN 25% 50 ML IV SCH ×3 (02:04→17:08)
[2020-07-16] MEDS: CARVEDILOL 3.125 MG TABLET PO SCH ×2 (05:22→17:09)
[2020-07-16 05:29] LABS: ALBUMIN 3.1 g/dL (3.4-5.0); ANION GAP 4 mmol/L (5-15); CALCIUM 8.8 mg/dL (8.5-10.1); CHLORIDE 103 mmol/L (98-107); CREATININE 1.17 mg/dL (0.7-1.3)
[2020-07-16 08:14] VITALS: BP 106/69
[2020-07-16] MEDS: INSULIN LISPRO 100 UNITS/ML, PEN SQ-INSULIN SCH ×4 (08:27→21:18)
[2020-07-16] MEDS: TAMSULOSIN 0.4 MG CAP.ER.24H PO SCH (08:28)
[2020-07-16] MEDS: metFORMIN 500 MG TABLET PO SCH ×2 (08:28→17:08)
[2020-07-16] MEDS: METOLAZONE 2.5 MG TABLET PO ONE ×2 (08:28→08:33)
[2020-07-16] MEDS: ENOXAPARIN 40 MG/0.4 ML SQ SCH (08:29)
[2020-07-16] MEDS: FAMOTIDINE 20 MG TABLET PO SCH ×2 (08:29→21:13)
[2020-07-16] MEDS: METHADONE 10 MG TABLET PO SCH (08:29)
[2020-07-16] MEDS: FUROSEMIDE 20 MG/2 ML IV SCH ×2 (08:34→17:08)
[2020-07-16 14:00] VITALS: BP 107/71
[2020-07-16 20:40] VITALS: BP 116/70
[2020-07-16] MEDS: ATORVASTATIN 20 MG TABLET PO SCH (21:13)
[2020-07-17 01:32] VITALS: BP 111/70
[2020-07-17] MEDS: ALBUMIN HUMAN 25% 50 ML IV SCH ×3 (02:27→23:22)
[2020-07-17 05:23] LABS: ANION GAP 4 mmol/L (5-15); CALCIUM 9.4 mg/dL (8.5-10.1); CHLORIDE 102 mmol/L (98-107); CREATININE 1.08 mg/dL (0.7-1.3)
[2020-07-17 05:26] LABS: BASOPHILS % (AUTO) 1 % (0-1); EOSINOPHILS % (AUTO) 1 % (1-7); LYMPHOCYTES % (AUTO) 16 % (22-44); MEAN CORPUSCULAR HEMOGLOBIN 25.5 pg (27.5-34.5); MEAN CORPUSCULAR HGB CONC 31.2 g/dL (33.2-36.2); MEAN PLATELET VOLUME 10.2 fL (7.4-10.4); MONOCYTES % (AUTO) 18 % (2-9); NEUTROPHILS % (AUTO) 65 % (42-75); PLATELET COUNT 74 x10^3/uL (130-400); RED BLOOD COUNT 3.43 x10^6/uL (4.38-5.82); RED CELL DISTRIBUTION WIDTH 20.8 % (9.4-14.8)
[2020-07-17 06:03] VITALS: BP 110/74
[2020-07-17] MEDS: CARVEDILOL 3.125 MG TABLET PO SCH ×2 (06:04→17:38)
[2020-07-17 06:32] LABS: MD SCAN
[2020-07-17] MEDS: INSULIN LISPRO 100 UNITS/ML, PEN SQ-INSULIN SCH ×4 (07:00→21:00)
[2020-07-17] MEDS: FAMOTIDINE 20 MG TABLET PO SCH ×2 (08:29→23:21)
[2020-07-17] MEDS: FUROSEMIDE 20 MG/2 ML IV SCH ×2 (08:29→23:21)
[2020-07-17] MEDS: TAMSULOSIN 0.4 MG CAP.ER.24H PO SCH (08:29)
[2020-07-17] MEDS: METHADONE 10 MG TABLET PO SCH (08:29)
[2020-07-17] MEDS: ENOXAPARIN 40 MG/0.4 ML SQ SCH (08:30)
[2020-07-17] MEDS: metFORMIN 500 MG TABLET PO SCH ×2 (08:53→17:39)
[2020-07-17 09:10] VITALS: BP 118/68
[2020-07-17 13:57] VITALS: BP 105/74
[2020-07-17] MEDS: SIMETHICONE 125 MG CHEW TAB PO SCH ×2 (17:38→23:21)
[2020-07-17] MEDS: MAGNESIUM HYDROXIDE 8%, 30ML UDC PO SCH (18:00)
[2020-07-17 23:14] VITALS: BP 116/65
[2020-07-17] MEDS: ATORVASTATIN 20 MG TABLET PO SCH (23:21)
[2020-07-18 01:20] VITALS: BP 122/71
[2020-07-18] MEDS: FERROUS SULFATE 325 MG TABLET PO SCH (02:50)
[2020-07-18] MEDS: ALBUMIN HUMAN 25% 50 ML IV SCH ×2 (04:41→12:40)
[2020-07-18 05:56] LABS: ALBUMIN 3.4 g/dL (3.4-5.0); ANION GAP 2 mmol/L (5-15); CALCIUM 9.2 mg/dL (8.5-10.1); CHLORIDE 103 mmol/L (98-107); CREATININE 1.06 mg/dL (0.7-1.3)
[2020-07-18] MEDS: CARVEDILOL 3.125 MG TABLET PO SCH (06:25)
[2020-07-18] MEDS: MAGNESIUM HYDROXIDE 8%, 30ML UDC PO SCH ×2 (06:28→07:53)
[2020-07-18] MEDS: SIMETHICONE 125 MG CHEW TAB PO SCH ×2 (07:00→11:00)
[2020-07-18] MEDS: INSULIN LISPRO 100 UNITS/ML, PEN SQ-INSULIN SCH ×2 (07:00→11:00)
[2020-07-18] MEDS ORDERED: LIDOCAINE 1%, 10ML ONE (07:41)
[2020-07-18 07:46] VITALS: BP 116/72
[2020-07-18] MEDS: metFORMIN 500 MG TABLET PO SCH (07:52)
[2020-07-18] MEDS: FAMOTIDINE 20 MG TABLET PO SCH (07:52)
[2020-07-18] MEDS: METHADONE 10 MG TABLET PO SCH (07:52)
[2020-07-18] MEDS: TAMSULOSIN 0.4 MG CAP.ER.24H PO SCH (07:53)
[2020-07-18] MEDS: FUROSEMIDE 20 MG/2 ML IV SCH (09:53)
[2020-07-18] MEDS: ENOXAPARIN 40 MG/0.4 ML SQ SCH (09:53)
[2020-07-18] MEDS ORDERED: FURO40TA6 PO (11:57)
[2020-07-18] MEDS ORDERED: FUROSEMIDE 40 MG TABLET PO SCH (17:00)
[2020-07-19 20:42] VITALS: BP 120/82
== END 2020-07-18 14:28 | disposition home health service (06) | DRG 291 ==
LOC: ED 21:21 → EDIP 07-12 00:15 → 5SO 07-12 02:10
PROVIDERS: ADMIT Internal Medicine; ATTEND Family Medicine
PROC: 0W993ZZ Drainage of Right Pleural Cavity, Percutaneous Approach (ICD-10-PCS; principal; 2020-07-12)
PROC: BB4BZZZ Ultrasonography of Pleura (ICD-10-PCS; 2020-07-12)
PROC: BW40ZZZ Ultrasonography of Abdomen (ICD-10-PCS; 2020-07-18)
DX: I11.0 Hypertensive heart disease with heart failure (principal); J96.21 Acute and chronic respiratory failure with hypoxia; E43 Unspecified severe protein-calorie malnutrition; I50.43 Acute on chronic combined systolic (congestive) and diastolic (congestive) heart failure; I27.20 Pulmonary hypertension, unspecified; F11.90 Opioid use, unspecified, uncomplicated; Z51.5 Encounter for palliative care; I42.8 Other cardiomyopathies; B18.2 Chronic viral hepatitis C; E11.9 Type 2 diabetes mellitus without complications; K59.00 Constipation, unspecified; E78.5 Hyperlipidemia, unspecified; E87.5 Hyperkalemia; I07.1 Rheumatic tricuspid insufficiency; I25.10 Atherosclerotic heart disease of native coronary artery without angina pectoris; I35.0 Nonrheumatic aortic (valve) stenosis; J44.9 Chronic obstructive pulmonary disease, unspecified; N40.0 Benign prostatic hyperplasia without lower urinary tract symptoms; N50.89 Other specified disorders of the male genital organs; I25.2 Old myocardial infarction; Z79.4 Long term (current) use of insulin; Z90.49 Acquired absence of other specified parts of digestive tract; Z91.19 Patient's noncompliance with other medical treatment and regimen; Z95.2 Presence of prosthetic heart valve; Z99.81 Dependence on supplemental oxygen; Z63.8 Other specified problems related to primary support group; Z87.891 Personal history of nicotine dependence; Z79.899 Other long term (current) drug therapy; Z68.23 Body mass index [BMI] 23.0-23.9, adult
CPT/HCPCS: 32555; 36415; 49083; 71045; 71250; 76870; 80048; 80053; 81001; 82040; 82945; 82962; 83615; 83735; 83880; 84100; 84145; 84155; 84157; 84484; 85025; 87070; 87205; 88112; 88305; 89051; 93005; 99291; G0378; J1650; J1940; J2405; P9047; J1815

== ENCOUNTER 2020-07-25 16:54 | Inpatient (IN) | payer MEDICARE ==
[~2020-07-25] VITALS: Ht 167.6 cm; Wt 58.2 kg
[~2020-07-25 16:54] MED LIST changes: +INSULIN LANTUS SC; +INSULIN REG SC; +LISI-606 PO
[2020-07-25] MEDS ORDERED: SODIUM CHLORIDE FLUSH 10ML SYR IVF ONE (17:30)
--- NOTE | 2020-07-25 18:00 | NUR ---
PT PLACED ON ALL ROOM MONITORING, OXYGEN KEPT AT HOME O2 LEVEL 2LITERS VIA NC. PT DROWSY/LETHARGIC, DIFFICULT TIME ANSWERING QUESTIONS. PT STATES HE'S BEEN FEELING BLOATED, ABD PAIN, AND LETHARGY SINCE BEING DISCHARGED FROM HOSPITAL EARLY JULY. PT WITH SCATTERED BRUISES ACROSS BODY, SMALL WOUNDS OBSERVED DRAINING UNDER COMPRESSION LEGGINGS. PT WITH GENERALIZED EDEMA, PITTING TO BLE AND BILATERAL HANDS. ABD FIRM, DISTENDED AND PT REPORTS PAIN THROUGHOUT. PT STATES HE GETS AROUND/AMBULATES WITHOUT ASSISTIVE DEVICES AT HOME. PT REPORTS OF FALL TWO DAYS AGO WITH PAIN TO R HAND EXTENDING TO R SHOULDER. ERP NOTIFIED OF INJURY. ATTEMPT FOR IV, PT WITH DIFFICULT ACCESS AND REFUSES IV ON RIGHT ARM.
[2020-07-25 18:35] LABS: BASOPHILS % (AUTO) 1 % (0-1); EOSINOPHILS % (AUTO) 2 % (1-7); LYMPHOCYTES % (AUTO) 14 % (22-44); MEAN CORPUSCULAR HGB CONC 30.4 g/dL (33.2-36.2); MEAN PLATELET VOLUME 8.8 fL (7.4-10.4); MONOCYTES % (AUTO) 12 % (2-9); NEUTROPHILS % (AUTO) 72 % (42-75); PLATELET COUNT 147 x10^3/uL (130-400); RED BLOOD COUNT 3.74 x10^6/uL (4.38-5.82); RED CELL DISTRIBUTION WIDTH 21.1 % (9.4-14.8)
[2020-07-25 18:46] LABS: ALANINE AMINOTRANSFERASE 41 U/L (12-78); ALBUMIN 3.4 g/dL (3.4-5.0); ANION GAP 7 mmol/L (5-15); CALCIUM 9.1 mg/dL (8.5-10.1); CHLORIDE 104 mmol/L (98-107); CREATININE 1.04 mg/dL (0.7-1.3)
[2020-07-25 18:50] LABS: ALKALINE PHOSPHATASE 95 U/L (45-117); BILIRUBIN,TOTAL 0.7 mg/dL (0.2-1.0); TOTAL PROTEIN 8.7 g/dL (6.4-8.2); TROPONIN I 0.037 ng/mL (0.000-0.045)
--- NOTE | 2020-07-25 19:01 | NUR ---
REPORT TO ELVIN, TRANSFER OF CARE AT THIS TIME.
[2020-07-25] MEDS ORDERED: SODIUM CHLORIDE FLUSH 10ML SYR IVF PRN (20:00)
--- NOTE | 2020-07-25 20:54 | NUR ---
PT CURRENTLY USING BEDSIDE COMMODE, AND ABLE TO SIT AND ASSIST HIMSELF SITTING ON BEDSIDE COMMODE. REPORT CALLED TO FLOOR RN, AND PT WILL BE TRANSFERRED UP AFTER HES FINISHED WITH COMMODE.
--- NOTE | 2020-07-25 21:05 | NUR ---
PT DONE WITH COMMODE, CLEANED AND BACK IN BED, AND TRANSPORTED TO FLOOR WITHOUT INCIDENT.
[2020-07-25] MEDS ORDERED: DOCUSATE 100 MG CAPSULE PO PRN (21:30)
[2020-07-25] MEDS ORDERED: POLYETHYLENE GLYCOL 17 GM PACKET PO PRN (21:30)
[2020-07-25] MEDS ORDERED: ONDANSETRON ODT 4 MG PO PRN (21:30)
[2020-07-25] MEDS ORDERED: BISACODYL 10 MG SUPP PR PRN (21:30)
[2020-07-25] MEDS ORDERED: PROMETHAZINE 25 MG/ML, 1ML IM PRN (21:30)
[2020-07-25] MEDS ORDERED: hydrALAzine 20 MG/ML, 1ML IVPush PRN (21:30)
[2020-07-25] MEDS ORDERED: ACETAMINOPHEN 325 MG TABLET PO PRN (21:30)
[2020-07-25] MEDS ORDERED: ONDANSETRON 2MG/ML, 2ML IVPush PRN (21:30)
[2020-07-25] MEDS ORDERED: OXYcodone IR 5MG TABLET PO PRN (21:30)
[2020-07-25 22:05] VITALS: BP 109/70
[2020-07-25] MEDS: FUROSEMIDE 20 MG/2 ML IV SCH (23:00)
[2020-07-25] MEDS: ENOXAPARIN 40 MG/0.4 ML SQ SCH (23:00)
[2020-07-25] MEDS: ATORVASTATIN 20 MG TABLET PO SCH (23:01)
[2020-07-25] MEDS: INSULIN LISPRO 100 UNITS/ML, PEN SQ-INSULIN SCH (23:06)
[2020-07-25 23:45] LABS: AMPHETAMINE SCREEN, URINE Negative (Negative); BARBITURATE SCREEN, URINE Negative (Negative); BENZODIAZEPINE SCREEN, URINE Negative (Negative); CANNABINOID SCREEN, URINE Negative (Negative); COCAINE SCREEN, URINE Negative (Negative); METHADONE SCREEN, URINE Positive (Negative); OPIATE SCREEN, URINE Negative (Negative)
[2020-07-26 01:01] VITALS: BP 112/75
[2020-07-26] MEDS: OMEPRAZOLE 20 MG CAPSULE.DR PO SCH (05:47)
[2020-07-26 07:28] VITALS: BP 110/72
[2020-07-26] MEDS: TAMSULOSIN 0.4 MG CAP.ER.24H PO SCH (08:20)
[2020-07-26] MEDS: FUROSEMIDE 20 MG/2 ML IV SCH ×2 (08:22→17:19)
[2020-07-26] MEDS: METHADONE 10 MG TABLET PO SCH (08:22)
[2020-07-26 08:24] LABS: ANION GAP 5 mmol/L (5-15); CALCIUM 8.6 mg/dL (8.5-10.1); CHLORIDE 106 mmol/L (98-107)
[2020-07-26] MEDS: INSULIN LISPRO 100 UNITS/ML, PEN SQ-INSULIN SCH ×4 (08:25→20:30)
[2020-07-26 08:34] LABS: ALANINE AMINOTRANSFERASE 40 U/L (12-78); ALKALINE PHOSPHATASE 90 U/L (45-117); BILIRUBIN,TOTAL 0.6 mg/dL (0.2-1.0); CHOL/HDL RATIO 2.4; CHOLESTEROL, TOTAL 92 mg/dL (140-239); CREATININE 0.97 mg/dL (0.7-1.3); HDL CHOL % 42 % (26-37); HDL CHOLESTEROL (DIRECT) 39 mg/dL (40-60); LDL CHOLESTEROL,CALCULATED 42 mg/dL (54-169); LDL/HDL RATIO 1.1 (0.5-3.0); TOTAL PROTEIN 7.8 g/dL (6.4-8.2); TRIGLYCERIDES 54 mg/dL (50-200); VLDL CHOLESTEROL 11 mg/dL (0-25)
[2020-07-26 11:55] LABS: BASOPHILS % (AUTO) 1 % (0-1); EOSINOPHILS % (AUTO) 2 % (1-7); LYMPHOCYTES % (AUTO) 16 % (22-44); MEAN CORPUSCULAR HGB CONC 30.7 g/dL (33.2-36.2); MEAN PLATELET VOLUME 8.7 fL (7.4-10.4); MONOCYTES % (AUTO) 16 % (2-9); NEUTROPHILS % (AUTO) 66 % (42-75); PLATELET COUNT 118 x10^3/uL (130-400); RED BLOOD COUNT 3.66 x10^6/uL (4.38-5.82); RED CELL DISTRIBUTION WIDTH 20.8 % (9.4-14.8)
[2020-07-26 13:30] VITALS: BP 99/78
[2020-07-26] MEDS ORDERED: CALCIUM CARBONATE 500 MG TAB.CHEW ONE (13:37)
[2020-07-26] MEDS: CALCIUM CARBONATE 500 MG TAB.CHEW PO PRN ×2 (13:39→22:36)
[2020-07-26 20:19] VITALS: BP 122/77
[2020-07-26] MEDS: ATORVASTATIN 20 MG TABLET PO SCH (20:29)
[2020-07-26] MEDS: ENOXAPARIN 40 MG/0.4 ML SQ SCH (22:35)
[2020-07-27 01:46] VITALS: BP 130/88
[2020-07-27] MEDS: OMEPRAZOLE 20 MG CAPSULE.DR PO SCH (06:21)
[2020-07-27 07:28] VITALS: BP 115/79
[2020-07-27] MEDS: FUROSEMIDE 20 MG/2 ML IV SCH ×2 (08:20→10:56)
[2020-07-27] MEDS: INSULIN LISPRO 100 UNITS/ML, PEN SQ-INSULIN SCH ×4 (08:20→22:20)
[2020-07-27] MEDS: TAMSULOSIN 0.4 MG CAP.ER.24H PO SCH (08:20)
[2020-07-27] MEDS: METHADONE 10 MG TABLET PO SCH (08:20)
[2020-07-27 13:35] VITALS: BP 107/67
[2020-07-27] MEDS: FUROSEMIDE 100 MG in SODIUM CHLORIDE 0.9% 90 ML IV PRN (15:28)
[2020-07-27] MEDS: METOLAZONE 2.5 MG TABLET PO SCH (17:25)
[2020-07-27 17:30] VITALS: BP 107/75
[2020-07-27 19:36] VITALS: BP 108/64
[2020-07-27] MEDS: ATORVASTATIN 20 MG TABLET PO SCH (22:20)
[2020-07-27] MEDS: ENOXAPARIN 40 MG/0.4 ML SQ SCH (23:14)
[2020-07-27 23:26] LABS: ANION GAP 5 mmol/L (5-15); CALCIUM 8.8 mg/dL (8.5-10.1); CHLORIDE 101 mmol/L (98-107); CREATININE 1.03 mg/dL (0.7-1.3)
[2020-07-28 01:50] VITALS: BP 111/69
[2020-07-28] MEDS: FUROSEMIDE 100 MG in SODIUM CHLORIDE 0.9% 90 ML IV PRN ×3 (02:04→23:15)
[2020-07-28] MEDS: OMEPRAZOLE 20 MG CAPSULE.DR PO SCH (05:41)
[2020-07-28 06:32] VITALS: BP 100/65
[2020-07-28] MEDS: INSULIN LISPRO 100 UNITS/ML, PEN SQ-INSULIN SCH ×4 (08:24→20:55)
[2020-07-28] MEDS: METOLAZONE 2.5 MG TABLET PO SCH ×2 (08:24→17:42)
[2020-07-28] MEDS ORDERED: MAGNESIUM SULFATE PMX 4GM/100M 100 ML IVPB ONE (09:00)
[2020-07-28 09:03] LABS: ANION GAP 4 mmol/L (5-15); CALCIUM 8.7 mg/dL (8.5-10.1); CHLORIDE 100 mmol/L (98-107); CREATININE 1.03 mg/dL (0.7-1.3)
[2020-07-28] MEDS: TAMSULOSIN 0.4 MG CAP.ER.24H PO SCH (09:43)
[2020-07-28] MEDS: METHADONE 10 MG TABLET PO SCH (09:43)
[2020-07-28 13:25] VITALS: BP 138/72
[2020-07-28 20:11] VITALS: BP 113/67
[2020-07-28] MEDS: ATORVASTATIN 20 MG TABLET PO SCH (20:55)
[2020-07-28] MEDS: ENOXAPARIN 40 MG/0.4 ML SQ SCH (23:05)
[2020-07-29 00:32] VITALS: BP 126/82
[2020-07-29] MEDS: OMEPRAZOLE 20 MG CAPSULE.DR PO SCH (05:27)
[2020-07-29 07:00] VITALS: BP 110/68
[2020-07-29] MEDS: INSULIN LISPRO 100 UNITS/ML, PEN SQ-INSULIN SCH ×4 (07:00→21:18)
[2020-07-29] MEDS: TAMSULOSIN 0.4 MG CAP.ER.24H PO SCH (07:54)
[2020-07-29] MEDS: METOLAZONE 2.5 MG TABLET PO SCH ×2 (07:54→16:02)
[2020-07-29] MEDS: METHADONE 10 MG TABLET PO SCH (07:55)
[2020-07-29] MEDS: FUROSEMIDE 100 MG in SODIUM CHLORIDE 0.9% 90 ML IV PRN (09:49)
[2020-07-29 12:48] LABS: ANION GAP 7 mmol/L (5-15); CALCIUM 9.2 mg/dL (8.5-10.1); CHLORIDE 89 mmol/L (98-107); CREATININE 1.11 mg/dL (0.7-1.3)
[2020-07-29 15:26] VITALS: BP 103/64
[2020-07-29 20:42] VITALS: BP_SYST 104; BP_SYST 11; BP_DIAS 60; BP_DIAS 67
[2020-07-29] MEDS: ATORVASTATIN 20 MG TABLET PO SCH (21:18)
[2020-07-29] MEDS: ENOXAPARIN 40 MG/0.4 ML SQ SCH (23:06)
[2020-07-30 01:09] VITALS: BP 102/60
[2020-07-30 05:18] LABS: ANION GAP 3 mmol/L (5-15); CALCIUM 8.5 mg/dL (8.5-10.1); CHLORIDE 93 mmol/L (98-107); CREATININE 0.97 mg/dL (0.7-1.3)
[2020-07-30] MEDS: OMEPRAZOLE 20 MG CAPSULE.DR PO SCH (05:30)
[2020-07-30] MEDS: INSULIN LISPRO 100 UNITS/ML, PEN SQ-INSULIN SCH ×5 (07:00→20:41)
[2020-07-30 07:48] VITALS: BP 107/65
[2020-07-30] MEDS: TORSEMIDE 20 MG TABLET PO SCH (08:18)
[2020-07-30] MEDS: METOLAZONE 2.5 MG TABLET PO SCH ×2 (08:19→17:23)
[2020-07-30] MEDS: TAMSULOSIN 0.4 MG CAP.ER.24H PO SCH (08:19)
[2020-07-30] MEDS: METHADONE 10 MG TABLET PO SCH (08:19)
[2020-07-30 14:36] VITALS: BP 112/65
[2020-07-30 20:00] VITALS: BP 103/66
[2020-07-30] MEDS: ATORVASTATIN 20 MG TABLET PO SCH (20:31)
[2020-07-30] MEDS: ENOXAPARIN 40 MG/0.4 ML SQ SCH (22:57)
[2020-07-31 01:31] VITALS: BP 108/74
[2020-07-31 04:45] LABS: ANION GAP 3 mmol/L (5-15); CALCIUM 8.9 mg/dL (8.5-10.1); CHLORIDE 91 mmol/L (98-107)
[2020-07-31 04:47] LABS: CREATININE 0.89 mg/dL (0.7-1.3)
[2020-07-31] MEDS: OMEPRAZOLE 20 MG CAPSULE.DR PO SCH (06:34)
[2020-07-31] MEDS: INSULIN LISPRO 100 UNITS/ML, PEN SQ-INSULIN SCH ×4 (08:32→21:27)
[2020-07-31] MEDS: TORSEMIDE 20 MG TABLET PO SCH (08:33)
[2020-07-31] MEDS: METOLAZONE 2.5 MG TABLET PO SCH ×2 (08:33→17:17)
[2020-07-31] MEDS: TAMSULOSIN 0.4 MG CAP.ER.24H PO SCH (08:34)
[2020-07-31] MEDS: METHADONE 10 MG TABLET PO SCH (08:34)
[2020-07-31 09:30] VITALS: BP 106/71
[2020-07-31] MEDS ORDERED: ALBUMIN HUMAN 25% 100 ML IV ONE (13:00)
[2020-07-31 14:05] VITALS: BP 112/70
[2020-07-31 21:10] VITALS: BP 113/78
[2020-07-31] MEDS: ATORVASTATIN 20 MG TABLET PO SCH (21:15)
[2020-07-31] MEDS: ENOXAPARIN 40 MG/0.4 ML SQ SCH (23:29)
[2020-08-01 02:20] VITALS: BP_SYST 116; BP_SYST 119; BP_DIAS 62; BP_DIAS 80
[2020-08-01 05:31] LABS: CALCIUM 8.9 mg/dL (8.5-10.1); CHLORIDE 84 mmol/L (98-107)
[2020-08-01 05:32] LABS: CREATININE 0.87 mg/dL (0.7-1.3)
[2020-08-01 05:49] LABS: ANION GAP 4 mmol/L (5-15)
[2020-08-01] MEDS: OMEPRAZOLE 20 MG CAPSULE.DR PO SCH (05:55)
[2020-08-01] MEDS: INSULIN LISPRO 100 UNITS/ML, PEN SQ-INSULIN SCH ×4 (07:46→20:01)
[2020-08-01] MEDS: TORSEMIDE 20 MG TABLET PO SCH (09:16)
[2020-08-01] MEDS: TAMSULOSIN 0.4 MG CAP.ER.24H PO SCH (09:16)
[2020-08-01] MEDS: METOLAZONE 2.5 MG TABLET PO SCH ×2 (09:16→17:09)
[2020-08-01] MEDS: METHADONE 10 MG TABLET PO SCH (09:16)
[2020-08-01 09:19] VITALS: BP 105/67
[2020-08-01 14:00] VITALS: BP 99/65
[2020-08-01] MEDS: ATORVASTATIN 20 MG TABLET PO SCH (20:01)
[2020-08-01 20:08] VITALS: BP 101/62
[2020-08-02] MEDS: ENOXAPARIN 40 MG/0.4 ML SQ SCH (00:37)
[2020-08-02 02:45] VITALS: BP 98/65
[2020-08-02] MEDS: OMEPRAZOLE 20 MG CAPSULE.DR PO SCH (05:11)
[2020-08-02 06:00] LABS: CALCIUM 8.9 mg/dL (8.5-10.1); CHLORIDE 86 mmol/L (98-107)
[2020-08-02 06:01] LABS: CREATININE 1.18 mg/dL (0.7-1.3)
[2020-08-02 06:19] LABS: ANION GAP 1 mmol/L (5-15)
[2020-08-02 06:52] VITALS: BP 120/83
[2020-08-02] MEDS: METOLAZONE 2.5 MG TABLET PO SCH ×2 (08:03→18:01)
[2020-08-02] MEDS: INSULIN LISPRO 100 UNITS/ML, PEN SQ-INSULIN SCH ×4 (08:29→21:32)
[2020-08-02] MEDS: TORSEMIDE 20 MG TABLET PO SCH (08:30)
[2020-08-02] MEDS: TAMSULOSIN 0.4 MG CAP.ER.24H PO SCH (08:30)
[2020-08-02] MEDS: METHADONE 10 MG TABLET PO SCH (08:30)
[2020-08-02] MEDS ORDERED: INSULIN LISPRO 100 UNITS/ML, PEN SQ-INSULIN SCH (11:00)
[2020-08-02 13:28] VITALS: BP 121/76
[2020-08-02 19:27] VITALS: BP 113/74
[2020-08-02] MEDS ORDERED: INSULIN GLARGINE 100 UNITS/ML, PEN SQ-INSULIN SCH (21:00)
[2020-08-02] MEDS: ATORVASTATIN 20 MG TABLET PO SCH (21:30)
[2020-08-03] MEDS: ENOXAPARIN 40 MG/0.4 ML SQ SCH (00:22)
[2020-08-03 00:23] VITALS: BP 103/64
[2020-08-03] MEDS: OMEPRAZOLE 20 MG CAPSULE.DR PO SCH (05:18)
[2020-08-03 05:31] LABS: BASOPHILS % (AUTO) 0 % (0-1); EOSINOPHILS % (AUTO) 1 % (1-7); LYMPHOCYTES % (AUTO) 15 % (22-44); MEAN CORPUSCULAR HEMOGLOBIN 25.1 pg (27.5-34.5); MEAN CORPUSCULAR HGB CONC 31.4 g/dL (33.2-36.2); MEAN PLATELET VOLUME 8.4 fL (7.4-10.4); MONOCYTES % (AUTO) 16 % (2-9); NEUTROPHILS % (AUTO) 68 % (42-75); PLATELET COUNT 99 x10^3/uL (130-400); RED CELL DISTRIBUTION WIDTH 20.2 % (9.4-14.8)
[2020-08-03 05:42] LABS: CALCIUM 9.3 mg/dL (8.5-10.1); CHLORIDE 85 mmol/L (98-107); CREATININE 0.97 mg/dL (0.7-1.3)
[2020-08-03 05:53] LABS: ANION GAP 3 mmol/L (5-15)
[2020-08-03 06:37] VITALS: BP 103/68
[2020-08-03] MEDS: INSULIN LISPRO 100 UNITS/ML, PEN SQ-INSULIN SCH ×3 (07:00→16:06)
[2020-08-03] MEDS: METHADONE 10 MG TABLET PO SCH (08:05)
[2020-08-03] MEDS: METOLAZONE 2.5 MG TABLET PO SCH ×2 (08:06→16:06)
[2020-08-03] MEDS: TAMSULOSIN 0.4 MG CAP.ER.24H PO SCH (08:06)
[2020-08-03] MEDS: TORSEMIDE 20 MG TABLET PO SCH (08:06)
[2020-08-03 12:30] VITALS: BP 98/62
[2020-08-03] MEDS ORDERED: METO2.5T PO (13:47)
[2020-08-03] MEDS ORDERED: NPH,100V5 SQ ×2 (13:47)
[2020-08-03] MEDS ORDERED: INSU100V8 SQ (13:47)
[2020-08-03] MEDS ORDERED: TORS20TA2 PO (13:47)
[2020-08-04] MEDS ORDERED: INSU100C5 SQ-INSULIN (14:21)
== END 2020-08-03 20:01 | disposition home health service (06) | DRG 306 ==
LOC: ED 18:17 → EDIP 21:30 → 5SO 21:41
PROVIDERS: ADMIT Internal Medicine; ATTEND Family Medicine
PROC: 0W993ZZ Drainage of Right Pleural Cavity, Percutaneous Approach (ICD-10-PCS; principal; 2020-07-27)
PROC: 02HV33Z Insertion of Infusion Device into Superior Vena Cava, Percutaneous Approach (ICD-10-PCS; 2020-07-27)
PROC: B5181ZA Fluoroscopy of Superior Vena Cava using Low Osmolar Contrast, Guidance (ICD-10-PCS; 2020-07-27)
PROC: B548ZZA Ultrasonography of Superior Vena Cava, Guidance (ICD-10-PCS; 2020-07-27)
DX: I35.0 Nonrheumatic aortic (valve) stenosis (principal); J96.21 Acute and chronic respiratory failure with hypoxia; E43 Unspecified severe protein-calorie malnutrition; J96.22 Acute and chronic respiratory failure with hypercapnia; I50.43 Acute on chronic combined systolic (congestive) and diastolic (congestive) heart failure; E87.3 Alkalosis; F11.20 Opioid dependence, uncomplicated; J91.8 Pleural effusion in other conditions classified elsewhere; I42.8 Other cardiomyopathies; I11.0 Hypertensive heart disease with heart failure; I07.1 Rheumatic tricuspid insufficiency; D63.8 Anemia in other chronic diseases classified elsewhere; Z20.822 Contact with and (suspected) exposure to COVID-19; E11.9 Type 2 diabetes mellitus without complications; E78.5 Hyperlipidemia, unspecified; G89.29 Other chronic pain; I25.10 Atherosclerotic heart disease of native coronary artery without angina pectoris; I27.20 Pulmonary hypertension, unspecified; R53.81 Other malaise; Z60.2 Problems related to living alone; I95.9 Hypotension, unspecified; J44.9 Chronic obstructive pulmonary disease, unspecified; N40.0 Benign prostatic hyperplasia without lower urinary tract symptoms; Z79.899 Other long term (current) drug therapy; Z87.891 Personal history of nicotine dependence; Z91.19 Patient's noncompliance with other medical treatment and regimen; Z95.2 Presence of prosthetic heart valve; Z86.19 Personal history of other infectious and parasitic diseases; Z87.01 Personal history of pneumonia (recurrent); Z90.49 Acquired absence of other specified parts of digestive tract
CPT/HCPCS: 32555; 36415; 36573; 71045; 80048; 80053; 80061; 80307; 82945; 82962; 83036; 83615; 83735; 83880; 84100; 84157; 84443; 84484; 85025; 87046; 87070; 87205; 87427; 89051; 93005; 99285; G0378; J1650; J1940; P9047; U0005; C1751; J1815; J3475; U0003

== ENCOUNTER 2020-08-15 22:38 | Observation (INO) | payer MEDICARE ==
[~2020-08-15] VITALS: Ht 167.6 cm; Wt 65.7 kg
[~2020-08-15 22:38] MED LIST changes: +INSU100C5 SQ-INSULIN; +INSU100V8 SQ; +METO2.5T PO; +NPH,100V5 SQ; +TORS20TA2 PO
[2020-08-15 23:21] LABS: BASOPHILS % (AUTO) 1 % (0-1); EOSINOPHILS % (AUTO) 1 % (1-7); LYMPHOCYTES % (AUTO) 9 % (22-44); MEAN CORPUSCULAR HEMOGLOBIN 25.2 pg (27.5-34.5); MEAN CORPUSCULAR HGB CONC 31.3 g/dL (33.2-36.2); MEAN PLATELET VOLUME 8.1 fL (7.4-10.4); MONOCYTES % (AUTO) 14 % (2-9); NEUTROPHILS % (AUTO) 76 % (42-75); PLATELET COUNT 195 x10^3/uL (130-400); RED BLOOD COUNT 3.53 x10^6/uL (4.38-5.82); RED CELL DISTRIBUTION WIDTH 20.3 % (9.4-14.8)
[2020-08-15 23:31] LABS: ANION GAP 6 mmol/L (5-15); CALCIUM 8.7 mg/dL (8.5-10.1); CHLORIDE 90 mmol/L (98-107); CREATININE 1.17 mg/dL (0.7-1.3)
[2020-08-15 23:41] LABS: TROPONIN I 0.246 ng/mL (0.000-0.045)
--- NOTE | 2020-08-16 00:47 | NUR ---
BREAK RN: PT RESTING IN ROOM. [employer] ON. NSR NOTED. PULSE OX ON. OXYGEN ON. VS STABLE. CALL LIGHT IN PLACE. WILL CONTINUE TO MONITOR.
[2020-08-16] MEDS ORDERED: ASPIRIN 325 MG TABLET ONE (01:07)
--- NOTE | 2020-08-16 01:08 | NUR ---
REPORT GIVEN TO SCOTT ORDOÑEZ
[2020-08-16] MEDS ORDERED: ASPIRIN 325 MG TABLET PO ONE (01:30)
--- NOTE | 2020-08-16 01:30 | NUR ---
SPOKE WITH ERP, PT HAS CHRONICALLY HIGH TROPS, PT IS NONCOMPLIANT WITH HOME NURSING AND CARE PROVIDED OP. PT HAS EXTRA STRESS ON HEART FROM AORTIC STENOSIS WELL. PT MEDICATED PER EMAR, NO MORE INTERVENTIONS AT THIS TIME
--- NOTE | 2020-08-16 02:05 | NUR ---
RPORT GIVEN TO SCOTT BROTHERS
[2020-08-16] MEDS ORDERED: ENOXAPARIN 40 MG/0.4 ML SQ SCH (04:00)
[2020-08-16] MEDS ORDERED: FERROUS SULFATE 325 MG TABLET PO SCH (04:00)
[2020-08-16] MEDS ORDERED: LABETALOL 5MG/ML, 20ML IVPush PRN (04:00)
[2020-08-16] MEDS ORDERED: ACETAMINOPHEN 325 MG TABLET PO PRN (04:00)
[2020-08-16] MEDS ORDERED: OMEPRAZOLE 20 MG CAPSULE.DR PO SCH (06:00)
[2020-08-16 06:07] LABS: TROPONIN I 0.222 ng/mL (0.000-0.045)
[2020-08-16 06:40] VITALS: BP 101/68
[2020-08-16] MEDS ORDERED: METOLAZONE 2.5 MG TABLET PO SCH (07:30)
[2020-08-16] MEDS ORDERED: TAMSULOSIN 0.4 MG CAP.ER.24H PO SCH (09:00)
[2020-08-16] MEDS ORDERED: TORSEMIDE 20 MG TABLET PO SCH (09:00)
[2020-08-16] MEDS: INSULIN LISPRO 100 UNITS/ML, PEN SQ-INSULIN SCH ×2 (10:13→11:00)
[2020-08-16] MEDS ORDERED: METHADONE 40 MG TABLET.SOL PO SCH (10:30)
[2020-08-16] MEDS ORDERED: metFORMIN 500 MG TABLET PO SCH (10:30)
[2020-08-16] MEDS ORDERED: METHADONE 10 MG TABLET ONE (10:40)
[2020-08-16 12:10] LABS: TROPONIN I 0.156 ng/mL (0.000-0.045)
[2020-08-16 12:59] VITALS: BP 106/69
[2020-08-16] MEDS ORDERED: ATORVASTATIN 20 MG TABLET PO SCH (21:00)
== END 2020-08-16 14:20 | disposition home or self-care (01) ==
LOC: ED 23:59 → INTOOBSV 08-16 00:59 → 5SO 08-16 00:59 → ED 08-16 01:00 → DCLOUNGE 08-16 14:00
PROVIDERS: ADMIT Family Medicine; ATTEND Hospitalist
DX: I21.4 Non-ST elevation (NSTEMI) myocardial infarction (principal); N28.0 Ischemia and infarction of kidney; J96.11 Chronic respiratory failure with hypoxia; I11.0 Hypertensive heart disease with heart failure; I50.42 Chronic combined systolic (congestive) and diastolic (congestive) heart failure; J44.1 Chronic obstructive pulmonary disease with (acute) exacerbation; I35.0 Nonrheumatic aortic (valve) stenosis; I27.20 Pulmonary hypertension, unspecified; I42.8 Other cardiomyopathies; I07.1 Rheumatic tricuspid insufficiency; D50.9 Iron deficiency anemia, unspecified; F11.20 Opioid dependence, uncomplicated; J90 Pleural effusion, not elsewhere classified; E11.9 Type 2 diabetes mellitus without complications; E78.5 Hyperlipidemia, unspecified; N40.0 Benign prostatic hyperplasia without lower urinary tract symptoms; I25.2 Old myocardial infarction; Z79.4 Long term (current) use of insulin; Z79.899 Other long term (current) drug therapy; Z87.891 Personal history of nicotine dependence
CPT/HCPCS: 36415; 71045; 80048; 82040; 82962; 83880; 84484; 85025; 93005; 96372; 99285; G0378; J1650; J1815